=== PATIENT | male | born 1995 | race Hispanic/Latino ===

== ENCOUNTER 2019-03-19 06:06 | Inpatient (IN) | payer SELFPAY ==
[2019-03-19 06:35] LABS: #Basophils 0.1 thou/uL (0.0-0.2); #Lymphocytes 2.1 thou/uL (1.20-3.40); #Monocytes 0.5 thou/uL (0.11-0.59); #Neutrophils 5.8 thou/uL (1.40-6.50); %Basophils 1.5 % (0.0-1.0); %Eosinophils 0.4 % (0.0-10.0); %Lymphocytes 24.7 % (21.0-51.0); %Monocytes 5.7 % (0.0-10.0); %Neutrophils 67.8 % (42.0-75.0); Hemoglobin 13.8 g/dL (14.0-18.0); Mean Corpuscular HGB CONC 34.3 g/dL (32.0-36.0); Mean Corpuscular Volume 87.6 fL (78.0-98.0); Mean Platelet Volume 6.2 fL (7.4-10.4); Platelet Count 419 thou/uL (130-400); RBC Distribution Width 10.8 % (11.5-14.5); Red Blood Cell (RBC) Count 4.62 mill/uL (4.70-6.10); White Blood Cell (WBC) Count 8.5 thou/uL (4.8-10.8)
[2019-03-19 06:58] LABS: ALT (SGPT) 50 U/L (8-55); AST (SGOT) 32 U/L (5-34); Albumin 4.5 g/dL (3.5-5.0); Alkaline Phosphatase 134 U/L (40-110); Anion Gap 16 mmol/L (10-20); BUN (Urea Nitrogen) 8 mg/dL (8.9-20.6); Bilirubin, Total 0.3 mg/dL (0.2-1.2); Calc. Creatinine Clearance 0 mL/min (70-130); Calcium 9.6 mg/dL (7.8-10.44); Carbon Dioxide 20 mmol/L (22-29); Chloride 103 mmol/L (98-107); Estimated GFR-MDRD Greater than 90; Glucose 167 mg/dL (70-105); Potassium 3.4 mmol/L (3.5-5.1); Protein, Total 7.5 g/dL (6.0-8.3); Sodium 136 mmol/L (136-145)
[2019-03-19] MEDS ORDERED: Piperacillin/Tazobactam 4.5 GM VIAL ONE (07:14)
[2019-03-19] MEDS ORDERED: ALPRAZolam 0.25 MG TAB PO PRN (07:26)
[2019-03-19] MEDS ORDERED: Ondansetron ODT 4 MG TAB PO PRN (07:28)
[2019-03-19] MEDS ORDERED: Acetaminophen 325 MG TAB PO PRN (07:28)
[2019-03-19] MEDS ORDERED: Calcium Carbonate 500 MG ChewTAB PO PRN (07:28)
[2019-03-19] MEDS ORDERED: Ondansetron PF 4 MG/2 ML Vial IVP PRN (07:28)
[2019-03-19] MEDS ORDERED: Senokot S 8.6-50 MG TAB PO PRN (07:28)
[2019-03-19] MEDS ORDERED: Vancomycin HCl 1 GM in Premix Bag 1 BAG IVPB SCH (07:30)
--- NOTE | 2019-03-19 07:38 | RAD ---
XR Chest 1 View Portable HISTORY: Dyspnea COMPARISON: 03/15/2011 FINDINGS: The heart size is normal. The lungs are well expanded without focal areas of consolidation, pneumothorax or pleural effusions. IMPRESSION: No radiographic evidence of acute cardiopulmonary process.
[2019-03-19 07:57] LABS: Acetaminophen Less than 6.0 mcg/mL (10.0-30.0); Alcohol Less than 10 mg/dL (Less than 10); Salicylate Less than 8.0 mg/dL (15.0-30.0)
[2019-03-19 07:58] LABS: CRP (Inflammatory) 3.42 mg/dL (= or < 0.5)
[2019-03-19] MEDS ORDERED: guaiFENesin ER 600 MG TAB PO SCH (09:00)
[2019-03-19] MEDS ORDERED: Doxycycline 100 MG CAP PO SCH (09:00)
[2019-03-19 10:18] LABS: Bacteria/HPF None Seen HPF (None Seen); Bilirubin Negative (Negative); Blood, Urine Negative (Negative); Clarity Clear (Clear); Glucose, Urine (Dipstick) Normal (Negative); Leukocyte Negative Leu/uL (Negative); Nitrite Negative (Negative); Protein, Urine (Dipstick) Negative (Neg-Trace); RBC/HPF None Seen HPF (0-3); Squamous Epithelial None Seen HPF (0-3); Urobilinogen Normal mg/dL (Less than 2); WBC/HPF 0-3 HPF (0-3)
[2019-03-19 10:21] LABS: Urine Culture Reflex No No
[2019-03-19 10:28] LABS: Amphetamine Not Detected (NotDetected); Barbiturates Screen Not Detected (NotDetected); Benzodiazepine Screen Not Detected (NotDetected); Cocaine Metabolite Screen Not Detected (NotDetected); Medtox Control Line Valid? VALID (VALID); Medtox Reader # READER 1; Methadone Not Detected (NotDetected); Methamphetamine Detected (NotDetected); Opiate Screen Not Detected (NotDetected); Oxycodone Screen Not Detected (NotDetected); Phencyclidine (PCP) Not Detected (NotDetected); THC/Cannabinoid Screen Detected (NotDetected); Tricyclic Screen Not Detected (NotDetected)
[2019-03-19 10:46] VITALS: BMI 26.2
[2019-03-19] MEDS ORDERED: Azithromycin 250 MG TAB PO SCH ×3 (11:00→13:00)
[2019-03-19] MEDS: D5 1/2 NS w/20 mEq KCL 1,000 ML IV SCH ×2 (12:43→20:32)
[2019-03-19] MEDS ORDERED: cefTRIAXone\\ROCEPHIN 2 GM in Sodium Chloride 0.9% 100 ML IVPB SCH (13:00)
[2019-03-19] MEDS ORDERED: Vancomycin 1.5 GRAM/300 ML BAG 1.5 GM in Premix Bag 1 BAG IVPB SCH (16:00)
--- NOTE | 2019-03-19 18:22 | HP ---
PRIMARY CARE PHYSICIAN: None. CHIEF COMPLAINT: Palpitations. HISTORY OF PRESENT ILLNESS: The patient is a 23-year-old male with anxiety and recent influenza, presented to the emergency room with above complaints. Approximately 3 weeks ago, he was diagnosed with influenza. He completed Tamiflu. He was back to his baseline. Around 2:30 a.m., the patient woke up with palpitations and diaphoresis. He describes it as a panic attack. Last night, the patient consumed beer and ate edible that was laced with methamphetamine and cannabis. He denies prior use of methamphetamine. No double vision, blurring of vision, facial asymmetry, chest pain or syncope reported. His heart rate per EMS was 160s. He was brought into the emergency room. In the emergency room, his initial vital signs showed temperature 98.4 with respirations of 22, pulse rate of 147 with a blood pressure of 151/94 with O2 saturation 100% on room air. His EKG showed sinus tachycardia without significant ST-T wave changes. His chest x-ray was negative for infiltrate. His lactic acid was 3.9 without any left shift. He was started on empiric antibiotics in the emergency room for possible sepsis. PAST MEDICAL HISTORY: Anxiety. PAST SURGICAL HISTORY: Reviewed with the patient and none. ALLERGIES: NO KNOWN DRUG ALLERGIES. CURRENT HOME MEDICATIONS: Reviewed with the patient and none. SOCIAL HISTORY: The patient continues to smoke on and off. He abuses cannabis. FAMILY HISTORY: Negative for heart disease. Sister with anxiety disorder. REVIEW OF SYSTEMS: All other review of systems was reviewed and was found negative. PHYSICAL EXAMINATION: VITAL SIGNS: As discussed above. GENERAL: A 23-year-old male in no apparent distress. HEENT: Head, atraumatic and normocephalic. Sclerae are anicteric. Moist mucous membranes. No oral lesion. NECK: Supple. No JVD. No carotid bruit. LUNGS: Clear to auscultation bilaterally. HEART: S1 and S2 present. Regular. Tachycardic. No rubs or gallops. ABDOMEN: Soft. Bowel sounds present. EXTREMITIES: No edema or calf tenderness. NEUROLOGIC: Grossly nonfocal. Moves all 4 extremities. Power was 5/5 in all extremities. PSYCHIATRIC: Alert, awake, and oriented x3. SKIN: Warm and dry. LYMPH NODES: No palpable lymph nodes in the neck. PERIPHERAL VASCULAR: Radial pulses palpable bilaterally. MUSCULOSKELETAL: No joint swelling or tenderness. LABORATORY FINDINGS: WBC 8.5 with hemoglobin 13.8 and platelet 419. Chemistries showed sodium 136, potassium 3.4, chloride 103, bicarb 20, BUN of 8, creatinine 0.97. LFTs in normal range except for alkaline phosphorus of 134. Troponin 0.014. CRP 3.42. Lactic acid initially 3.9, repeat was 2.0. Magnesium was normal. Urine drug screen positive for methamphetamine and cannabis. Urinalysis was negative. Blood cultures have been sent and pending at this time. Chest x-ray and EKG by my review as discussed above. IMPRESSION: 1. Palpitations with sinus tachycardia, probably secondary to drug abuse. Rule out sepsis. 2. Lactic acidosis, probably secondary to palpitations with sinus tachycardia. 3. Tobacco dependence. 4. Anxiety. The patient denies any suicidal ideation. 5. Cannabis abuse. 6. Methamphetamine abuse. 7. Hypokalemia. 8. Mild chronic anemia. PLAN: The patient will be monitored on the telemetry unit. We will continue IV hydration. We will add benzodiazepines as needed. Start empiric antibiotics for now. Discontinue antibiotics if cultures are negative. We will recheck electrolytes in a.m. The patient was extensively counseled on lifestyle modification. Job ID: [id number]
[2019-03-19] MEDS ORDERED: Budesonide 0.5 MG/2 ML NEB INH SCH (18:30)
[2019-03-20] MEDS: D5 1/2 NS w/20 mEq KCL 1,000 ML IV SCH ×2 (03:22→07:30)
[2019-03-20 04:45] LABS: Anion Gap 10 mmol/L (10-20); BUN (Urea Nitrogen) 6 mg/dL (8.9-20.6); Calc. Creatinine Clearance 132 mL/min (70-130); Calcium 8.9 mg/dL (7.8-10.44); Carbon Dioxide 26 mmol/L (22-29); Chloride 106 mmol/L (98-107); Estimated GFR-MDRD Greater than 90; Glucose 100 mg/dL (70-105); Potassium 4.3 mmol/L (3.5-5.1); Sodium 138 mmol/L (136-145)
[2019-03-20 07:40] VITALS: BP 110/56; TEMP 98
--- NOTE | 2019-03-20 08:12 | DIS ---
DATE OF ADMISSION: 03/19/2019 DATE OF DISCHARGE: 03/20/2019 DISCHARGE DISPOSITION: Home. FOLLOWUP: Follow up with primary care physician at [facility] in 1 week. ALLERGIES: NO KNOWN DRUG ALLERGIES. DISCHARGE MEDICATIONS: None. The patient was seen and examined on the day of discharge. Denies any new complaints. No chest pain, palpitations, fever, chills, or cough reported. SIGNIFICANT LABORATORY DATA: Potassium on admission 3.4, at discharge 4.3. Lactic acid on admission 3.9, at discharge 2.0. WBC 8.5 without any left shift. Urine drug screen was positive for cannabinoid and methamphetamine. Blood cultures negative. Chest x-ray was negative for infiltrate or edema. BRIEF HOSPITAL COURSE: The patient is a 23-year-old male with anxiety and recent influenza, completed Tamiflu, presented to the emergency room with palpitations. He was found to have elevated lactic acid without any leukocytosis or infectious etiology. Chest x-ray was negative. Urinalysis was negative. There were no GI symptoms reported. The patient was admitted with a diagnosis of sepsis per ER physician. He was started on broad-spectrum antibiotics which were later discontinued. Later on, it was found out that his urine drug screen was positive for methamphetamines and cannabinoid. The patient probably had sinus tachycardia with palpitations, probably secondary to polysubstance abuse. Sepsis is unlikely. His blood cultures have been negative. The patient has a history of anxiety, however, he denied any suicidal ideation this morning as well. I confirmed this yesterday also. FINAL DIAGNOSES: 1. Palpitations with sinus tachycardia, probably secondary to methamphetamine abuse. 2. Lactic acidosis, secondary to above. 3. Tobacco dependence, the patient was counseled. 4. Cannabis abuse, the patient was counseled. 5. Methamphetamine abuse, the patient was counseled. 6. Anxiety, the patient denies any suicidal ideation. 7. Hypokalemia, replaced. 8. Mild chronic anemia, replaced. DISCHARGE INSTRUCTIONS: The patient was advised to follow up on the final blood cultures. Time coordinating the discharge was 32 minutes. Job ID: [id number] [facility] NETWORKPedrito
[2019-03-20] MEDS ORDERED: Azithromycin 250 MG TAB PO SCH (09:00)
== END 2019-03-20 09:50 | disposition home or self-care (01) | DRG 918 ==
LOC: ERS 06:06 → ERHOLD 08:50 → 2NO 10:39
PROVIDERS: ADMIT Internal Medicine; ATTEND Internal Medicine
DX: T43.621A Poisoning by amphetamines, accidental (unintentional), initial encounter (principal); E87.2 Acidosis; F17.200 Nicotine dependence, unspecified, uncomplicated; F15.10 Other stimulant abuse, uncomplicated; F12.10 Cannabis abuse, uncomplicated; F41.9 Anxiety disorder, unspecified; E87.6 Hypokalemia; D64.9 Anemia, unspecified; R00.2 Palpitations; R00.0 Tachycardia, unspecified
CPT/HCPCS: 36415; 71045; 80048; 80053; 80306; 80307; 81001; 83605; 83735; 84484; 85025; 86140; 87040; 93005; 96361; 96365; 96367; J0696; J2405; J2543; J3370; J3490